=== PATIENT | male | born 1985 | race Caucasian/White ===

== ENCOUNTER 2017-07-21 12:54 | Emergency (ER) | payer MEDICAID ==
[~2017-07-21] VITALS: Ht 170.2 cm; Wt 118.0 kg
[2017-07-21 18:12] VITALS: BP 117/61
== END 2017-07-21 20:02 | disposition home or self-care (01) ==
LOC: ER 18:04
DX: L05.91 Pilonidal cyst without abscess (principal)
CPT/HCPCS: 99283